=== PATIENT | male | born 1965 | race Caucasian/White ===

== ENCOUNTER → 2017-06-17 | Outpatient (CLI) | payer BC ==
--- NOTE | 2017-06-17 15:08 | CT ---
HISTORY: Right flank pain x3 days. Study: CT abdomen and pelvis without contrast Comparison: None available. Technique: Multiple axial images of the abdomen and pelvis were obtained from the lung bases to the pubic symphy sis without the administration of IV contrast. Dose reduction techniques including Automated Exposur e Control (AEC) and adjustment of mA and kV were utilized. Findings: Limited study secondary to lack of IV and oral contrast. The visualized portions of the lung bases are unremarkable. Multiple punctate calcifications within t he spleen likely representing old granulomatous disease. The liver, pancreas, kidneys, and adrenal gl ands are unremarkable in their CT appearance. The gallbladder is unremarkable in its CT appearance. No significant mesenteric lymphadenopathy or stranding can be observed. No free fluid or free air is seen within the abdomen. Limited evaluation of the bowel secondary to collapse and lack of oral con trast. However, the visualized large and small bowel appear normal. The appendix is normal. The urin dionne bladder is grossly unremarkable. The bony structures are grossly intact. Scattered vascular calci fications. IMPRESSION: No CT evidence of acute abdominal/pelvic pathology. Reported By:
== END ==
LOC: RAD 13:38
PROVIDERS: ATTEND Nurse Practitioner
DX: R10.11 Right upper quadrant pain (principal)
CPT/HCPCS: 74176